=== PATIENT | male | born 1990 | race Two or more races ===

== ENCOUNTER 2019-01-19 07:24 | Emergency (ER) | payer MEDICAID ==
[~2019-01-19] VITALS: Ht 177.8 cm; Wt 95.3 kg
--- NOTE | 2019-01-19 07:24 | NUR ---
PT BIB PARENTS C/O HEADACHE, NAUSEA AND VOMITING SINCE LAST NIGHT. ADMITS TO ETOH LAST NIGHT, PT IS AAOX4, NOT IN RESPIRATORY DISTRESS, V/S STABLE, KEPT RESTED AND COMFORTABLE.
--- NOTE | 2019-01-19 08:10 | NUR ---
PT IS SEEN AND EXAMINED BY DR. MCCLAIN.
[2019-01-19] MEDS ORDERED: KETOROLAC TROMETHAMINE 15 MG/ML VIAL ONE (08:16)
[2019-01-19] MEDS ORDERED: ONDANSETRON HCL/PF 4 MG/2 ML VIAL ONE (08:16)
--- NOTE | 2019-01-19 08:20 | NUR ---
PT IV LINE ESTABLISHED, LABS DRAWNED AND SENT TO LAB.
[2019-01-19] MEDS ORDERED: KETOROLAC TROMETHAMINE INJ 30 MG/ML VIAL IV ONE (08:30)
[2019-01-19] MEDS ORDERED: IV NS 0.9% 1,000 ML BAG IV ONE (08:30)
[2019-01-19] MEDS ORDERED: ONDANSETRON HCL/PF 4 MG/2 ML VIAL IVP ONE (08:30)
[2019-01-19 08:32] LABS: CALCIUM, SERUM 8.8 mg/dL (8.5-10.1); CREATININE 1.1 mg/dL (0.6-1.3); POTASSIUM 3.8 mmol/L (3.5-5.1)
[2019-01-19 10:06] VITALS: BP 135/72
--- NOTE | 2019-01-19 10:06 | NUR ---
IV removed. Catheter intact and site benign. Pressure and 4x4 applied to site. No bleeding noted. Patient discharged to home in stable condition. Written and verbal after care instructions given. Patient verbalizes understanding of instruction.
== END 2019-01-19 10:08 | disposition home or self-care (01) ==
LOC: ER 07:24
DX: R11.2 Nausea with vomiting, unspecified (principal)
CPT/HCPCS: 36415; 80048; 96361; 96374; 96375; 99283; A4606; J1885; J2405; J7030

== ENCOUNTER 2021-04-29 19:39 | Emergency (ER) | payer MEDICAID ==
[~2021-04-29] VITALS: Ht 182.9 cm; Wt 95.3 kg
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
[2021-04-29] MEDS ORDERED: IBUP-1955 PO (20:15)
[2021-04-29] MEDS ORDERED: BACI3.5O23 OP (20:15)
[2021-04-29] MEDS ORDERED: TDAP [DIPH/PERTUSSIS/TET] 0.5 ML VIAL IM ONE ×2 (20:20→20:30)
[2021-04-29 20:23] VITALS: BP 139/73
--- NOTE | 2021-04-29 20:23 | NUR ---
EMT AT BEDSIDE FOR WOUND CARE.
--- NOTE | 2021-04-29 20:27 | NUR ---
Patient discharged to home in stable condition. Rx and Written and verbal after care instructions given. Patient verbalizes understanding of instruction.
== END 2021-04-29 20:27 | disposition home or self-care (01) ==
LOC: ER 19:44
DX: S91.311A Laceration without foreign body, right foot, initial encounter (principal); W26.8XXA Contact with other sharp object(s), not elsewhere classified, initial encounter; Y93.39 Activity, other involving climbing, rappelling and jumping off; Y92.89 Other specified places as the place of occurrence of the external cause; Y99.8 Other external cause status
CPT/HCPCS: 90715